=== PATIENT | male | born 1995 | race Asian ===

== ENCOUNTER 2017-04-17 15:29 | Emergency (ER) | payer OTHER ==
[~2017-04-17] VITALS: Ht 167.6 cm; Wt 99.8 kg
[2017-04-17 15:49] VITALS: BP 118/68
--- NOTE | 2017-04-17 15:59 | PHYS DOC ---
Past History Past Medical History: No Pertinent History Past Surgical History: No Surgical History Alcohol Use: None Drug Use: Marijuana Adult General Chief Complaint Chief Complaint: SHOULDER INJURY HPI HPI Patient is a 22 year old M who presents with right shoulder pain. Romeo states that he had a previous shoulder injury that has occasionally caused him difficulty. 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 This started about 1-2 weeks ago. He feels that his pain is been mildly worsening during this time. His pain is worse with movement and improved with positioning. He denies weakness or numbness Review of Systems Review of Systems Constitutional: Denies fever or chills [] Eyes: Denies change in visual acuity, redness, or eye pain [] HENT: Denies nasal congestion or sore throat [] Respiratory: Denies cough or shortness of breath [] Cardiovascular: No additional information not addressed in HPI [] GI: Denies abdominal pain, nausea, vomiting, bloody stools or diarrhea [] : Denies dysuria or hematuria [] Musculoskeletal: Denies back pain Integument: Denies rash or skin lesions [] Neurologic: Denies headache, focal weakness or sensory changes [] Endocrine: Denies polyuria or polydipsia [] Family History Family History Noncontributory Current Medications Current Medications Medications reviewed Allergies Allergies Allergies Coded Allergies Type Severity Reaction Last Updated Verified No Known Drug Allergies 04/17/17 No Physical Exam Physical Exam Constitutional: Well developed, well nourished, no acute distress, non-toxic appearance. [] HENT: Normocephalic, atraumatic, bilateral external ears normal, oropharynx moist, no oral exudates, nose normal. [] Eyes: PERRLA, EOMI, conjunctiva normal, no discharge. [] Neck: Normal range of motion, no tenderness, supple, no stridor. [] Cardiovascular:Heart rate regular rhythm, no murmur [] Lungs & Thorax: Bilateral breath sounds clear to auscultation [] Abdomen: Bowel sounds normal, soft, no tenderness, no masses, no pulsatile masses. [] Skin: Warm, dry, no erythema, no rash. [] Back: No tenderness, no CVA tenderness. [] Extremities: Exam limited to right shoulder: No obvious deformity, ecchymosis or skin breakdown. Normal range of motion with pain. Strength testing is limited due to pain. Neurovascularly intact. Neurologic: Alert and oriented X 3, normal motor function, normal sensory function, no focal deficits noted. [] Psychologic: Affect normal, judgement normal, mood normal. [] Current Patient Data Vital Signs Vital Signs Date Time Temp Pulse Resp B/P (MAP) Pulse Ox O2 Delivery O2 Flow Rate FiO2 04/17/17 15:49 99.5 72 20 97 Room Air EKG EKG [] Radiology/Procedures Radiology/Procedures Imaging was declined Course & Med Decision Making Course & Med Decision Making Pertinent Labs and Imaging studies reviewed. (See chart for details) [] Dragon Disclaimer Dragon Disclaimer This chart was dictated in whole or in part using Voice Recognition software in a busy, high-work load, and often noisy Emergency Department environment. It may contain unintended and wholly unrecognized errors or omissions. Departure Departure: Impression: Primary Impression: Shoulder pain, right Disposition: HOME, SELF-CARE Condition: STABLE Referrals: [facility]CP[facility] (PCP) Patient Instructions: Shoulder Pain Additional Instructions: Rmoeo was seen in the emergency department for shoulder pain. No emergency medical condition was found on history or physical exam. His symptoms were suspicious for a ligament or cartilage injury. He is advised to consider MRI for further workup. He was advised follow-up with an orthopedic surgeon as soon as possible for further management. Problem Qualifiers Primary Impression: Shoulder pain, right Chronicity: unspecified Qualified Codes: M25.511 - Pain in right shoulder JESSICA PAEZ MD Apr 17, 2017 15:59
== END 2017-04-17 16:14 | disposition home or self-care (01) ==
LOC: ER 15:29
DX: M25.511 Pain in right shoulder (principal); F12.10 Cannabis abuse, uncomplicated
CPT/HCPCS: 99281